=== PATIENT | female | born 2000 | race Caucasian/White ===

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

== ENCOUNTER 2022-01-03 14:05 | Emergency (ER) | payer OTHER, SELFPAY ==
[2022-01-03 14:06] VITALS: BP 124/74; PULSE 83; RESP 16; TEMP 36.6; O2SAT 96; BMI 26.5
--- NOTE | 2022-01-03 14:44 | HMH.EDUROGF ---
ED Disposition Clinical Impression: Abnormal uterine bleeding Disposition: Home, Self-Care Condition on Discharge: Good Instructions: DI for Urinary Tract Infection (UTI), DI for Urinary Tract Infection in Children, DI for Abnormal Uterine Bleeding Additional Instructions: follow up CRUSHER OPERATOR Referrals: Rigoberto Hopper MD [Primary Care Provider] - - Critical Care Critical Care Time: No Attestation: On 01/03/22, the high probability of a clinically significant, sudden or life threatening deterioration of the following system(s) required my full and direct attention, intervention and personal management. The time I documented below is in addition to time spent performing reported procedures but includes the following listed in this critical care notation. Medical Decision Making - Medical Records Medical records reviewed: Yes: I reviewed the patient's medical records. - [place] Inquiry Pt receiving controlled substance: No Vital Signs: 01/03/22 14:06 Temperature 98 F Temperature Source Oral Pulse Rate [Brachial] 83 Respiratory Rate 16 Blood Pressure [Right Arm] 124/74 Blood Pressure Mean [Right Arm] 90 Blood Pressure Position [Right Arm] Sitting 02 Sat by Pulse Oximetry 96 Oxygen Delivery Method Room Air - Lab Data Lab Results 01/03/22 14:10: Urine Color Yellow, Urine Appearance Sl cloudy, Urine pH 6.0, Ur Specific [place] >= 1.030, Urine Protein Negative, Urine Glucose (UA) Negative, Urine Ketones Negative, Urine Blood Negative, Urine Nitrate Negative, Urine Bilirubin Negative, Urine Urobilinogen 0.2, Ur Leukocyte Esterase Negative, Urine RBC Occasional, Urine WBC None, Ur Squamous Epith Cells 10-20, Urine Bacteria 1+ 01/03/22 14:10: Urine HCG, Qual Negative 01/03/22 15:10: WBC 4.9, RBC 4.74, Hgb 14.1, Hct 41.0, MCV 86.5, MCH 29.7, MCHC 34.4, RDW 12.8, Plt Count 344, MPV 7.9, Neut % (Auto) 61.3, Lymph % (Auto) 27.9, [place] % (Auto) 5.5, Eos % (Auto) 4.0, Baso % (Auto) 1.3, Neut # (Auto) 3.0, Lymph # (Auto) 1.4, [place] # (Auto) 0.3, Eos # (Auto) 0.2, Baso # (Auto) 0.1 01/03/22 15:10: Sodium 141, Potassium 4.0, Chloride 107, Carbon Dioxide 25, Anion Gap 13.0, BUN 9, Creatinine 0.70, Estimated Creat Clear 134, Estimated GFR 108, Est GFR ( Amer) 130, Glucose 94, Calcium 8.9, Total Bilirubin 0.9, AST 38 H, ALT 33, Alkaline Phosphatase 46, Total Protein 7.8, Albumin 4.8, Globulin 3.0, Albumin/Globulin Ratio 1.6 Result diagrams: 01/03/22 15:10 01/03/22 15:10 - Reevaluation(s) Time: 16:00 (reeval, no bleeding here, abd soft, ok with plan to f/u CRUSHER OPERATOR) Female Urogenital HPI - General Chief complaint: Urogenital-Female Stated complaint: abd pains, nausea, vaginal bledding Time Seen by Provider: 01/03/22 14:44 Mode of Arrival: Ambulatory Source of Information: Patient Limitations: No Limitations Description of Symptoms (Recalled from ER Triage Doc. by RN): to ed per pvt car with c/o abd cramping vag bleeding and clotting this am. pt states on control the bar for 4 years and has not had a period since insertion. - History of Present Illness HPI Narrative: sudden onset moderate vag bleed this am, assoc with abd cramps, resolved now, birthcontrol sex active Onset (ago): hour(s) Radiation: non-radiating Severity: moderate Quality: cramping Duration: now resolved Relieving factors: none Exacerbating factors: none Vaginal discharge: blood : No - Related Data Home Medications Medication Instructions Recorded Confirmed etonogestrel 68 mg subdermal SUBDERMAL 12/14/19 04/23/21 implant Previous Rx's Medication Instructions Recorded estradiol 2 mg tablet 2 mg PO DAILY #30 tab 12/14/19 Allergies Allergy/AdvReac Type Severity Reaction Status Date / Time No Known Allergies Allergy Verified 04/23/21 16:36 [facility] History - Hepatitis A Screen Drug use history?: No High risk sexual behaviors?: No History of sexually transmitted infection?: No Currently employed?: No
[2022-01-03 15:17] LABS: Microscopic, Urine URINE MICROSCOPIC (MICROSCOPIC)
[2022-01-03 15:20] LABS: Appearance,Urine SL CLOUDY (Clear); Bilirubin,Urine Negative (Negative); Blood, Urine Negative (Negative); Color,Urine YELLOW (Yellow); Glucose,Urine (UA) Negative (Negative); Ketones,Urine Negative (Negative); Leukocyte Esterase,Urine Negative (Negative); Nitrate,Urine Negative (Negative); Protein,Urine Negative (Negative); Specific Gravity, Urine >= 1.030 (1.005-1.030); Urobilinogen,Urine 0.2 EU/dl (0.2)
[2022-01-03 15:21] LABS: Urine Pregnancy, HCG Qual. Negative (Negative)
[2022-01-03 15:29] LABS: Basophils # 0.1 K/mm3 (0-0.2); Basophils % 1.3 % (0.1-2.0); Eosinophils # 0.2 K/mm3 (0.0-0.4); Hemoglobin 14.1 g/dL (12.2-16.2); Lymphocytes # 1.4 K/mm3 (0.7-4.5); Lymphocytes % 27.9 % (10-50); Mean Corpuscular HGB Conc 34.4 g/dL (31.8-35.4); Mean Corpuscular Hemoglobin 29.7 pg (27.0-31.2); Mean Corpuscular Volume 86.5 fl (81-99); Mean Platelet Volume 7.9 fl (7.4-10.4); Monocytes # 0.3 K/mm3 (0.1-1.0); Monocytes % 5.5 % (1.7-9.3); Neutrophils % 61.3 % (37.0-80.0); Platelet Count 344 K/mm3 (142-424); Red Blood Count 4.74 M/mm3 (4.20-5.40); Red Cell Distribution Width 12.8 % (11.5-17.5); White Blood Count 4.9 K/mm3 (4.5-13.0)
[2022-01-03 15:33] LABS: Chloride 107 mmol/L (98-107); Sodium 141 mmol/L (136-145)
[2022-01-03 15:36] LABS: Alanine Aminotransferase 33 U/L (12-78); Albumin Level 4.8 g/dl (3.5-5.0); Albumin/Globulin Ratio 1.6 (1.1-1.8); Alkaline Phosphatase 46 U/L (38-126); Aspartate Amino Transferase 38 U/L (14-36); Bilirubin,Total 0.9 mg/dl (0.2-1.3); Blood Urea Nitrogen 9 mg/dl (7-17); Calcium 8.9 mg/dl (8.4-10.2); Carbon Dioxide 25 mmol/L (22.0-30.0); Creatinine Clearance Estimated 134 mL/min (50-200); Estimated Glomerular Filt Rate 108 ml/min (>60); GFR (African American) 130 ML/MIN (>60); Glucose 94 mg/dl (74-100); Total Protein,Serum 7.8 g/dl (6.3-8.2)
[2022-01-03 15:44] LABS: Bacteria,Urine 1+ /lpf; RBC,Urine Occasional #/hpf (0-3)
[2022-01-03 16:27] VITALS: BP 117/69; PULSE 61; RESP 18; TEMP 36.6; O2SAT 96
== END 2022-01-03 16:28 | disposition home or self-care (01) ==
PROVIDERS: Emergency Provider Emergency Medicine; PCP Family Medicine
DX: N93.8 Other specified abnormal uterine and vaginal bleeding (principal)
CPT/HCPCS: 80053; 81001; 81025; 85025; 99283

== ENCOUNTER 2022-09-11 20:50 | Emergency (ER) | payer BC, SELFPAY ==
[2022-09-11 21:02] VITALS: BMI 24.8
--- NOTE | 2022-09-11 21:03 | XR_ITS ---
PROCEDURE INFORMATION: Exam: XR Left Ankle Exam date and time: 09/11/2022 8:59 PM Age: 22 years old Clinical indication: Patient HX: Left ankle pain S/P dropping bucket of paint on ankle; Additional info: Injury TECHNIQUE: Imaging protocol: Radiologic exam of the Left ankle. Views: 3 or more views. COMPARISON: CR ANKL3 ANKLE-LT-3 VIEWS 12/02/2015 2:25 PM FINDINGS: Bones/joints: Normal. Soft tissues: Mild soft tissue swelling superficial to the medial malleolus. IMPRESSION: 1. No evidence of acute osseous injury. 2. Soft tissue swelling.
[2022-09-11 21:06] VITALS: BP 133/76; PULSE 94; RESP 18; TEMP 36.8; O2SAT 98; BMI 24.8
[2022-09-11 21:23] LABS: Urine Pregnancy, HCG Qual. Negative (Negative)
--- NOTE | 2022-09-11 22:10 | HMH.EDLOEX ---
Discharge Plan Disposition Patient Disposition: Home, Self-Care Prescriptions Prescriptions: No Action No Known Home Medications Referrals Follow up/Referrals: Opal Daley APRN [Primary Care Provider] - See instructions Clinical Impressions Clinical Impression: Contusion of ankle, left, Ankle sprain and strain Instructions Patient Instructions: Sprain Discharge ED Provider: Jean Paul Kaur Lower Extremity Injury HPI General Chief Complaint: Extremity Injury, Lower Stated Complaint: AO12/7@2000 ATHOME INJURED l ANKLE Time Seen by Provider: 09/11/22 22:10 Mode of Arrival: Wheelchair Source of Information: Patient and Medical Record Limitations: No Limitations Description of Symptoms (Recalled from ER Triage Doc. by RN): Patient states that roughly 45 minutes ago she dropped a bucket of pain on her left ankle. History of Present Illness HPI Narrative: acute injury to lt ankle as dropped bucket on ankle MD complaint: ankle injury Onset (ago): hour(s) Injury: Left: ankle Type of Injury: blunt Place: home Severity: moderate Context: direct blow Associated symptoms: able to partially bear weight Other symptoms: none Related Data Home Medications Medication Instructions Recorded Confirmed No Known Home Medications 07/23/22 07/23/22 Allergies Allergy/AdvReac Type Severity Reaction Status Date / Time No Known Allergies Allergy Verified 07/23/22 16:05 [facility] Disclaimer: The information contained in this section may have been updated after the patient was seen, as this information can be updated by other users. Social History (Updated 07/23/22 @ 16:06 by MARYLOU Harris) Smoking Status: Current every day smoker alcohol intake: never substance use type: denies use current occupational status: employed Travel in the last 8 weeks: None household members: family housing: house ROS Obtained: Yes All systems reviewed & no additional complaints except as documented Physical Exam General General appearance: alert Head Head exam: normocephalic Eye Eye exam: Present PERRL and EOMI ENT ENT exam: Present mucous membranes moist Neck Neck exam: Present trachea midline Respiratory Respiratory exam: Absent respiratory distress Cardiovascular Cardiovascular exam: Present regular rate Expanded Lower Extremity Exam Left: Ankle exam: Present tenderness and swelling; Absent full ROM Neurovascular/Tendon exam: Present pulse deficit Neurological Exam Neurological exam: Present alert, oriented X3 and CN II-XII intact Psychiatric Psychiatric exam: Present normal affect Skin Skin exam: Absent rash Medical Decision Making Medical Records Medical records reviewed: Yes I reviewed the patient's medical records. [place] Inquiry Pt receiving controlled substance: No Vital Signs: 09/11/22 21:06 Temperature 98.2 F Temperature Source Oral Pulse Rate [Apical] 94 H Respiratory Rate 18 Blood Pressure [Right Arm] 133/76 Blood Pressure Mean [Right Arm] 95 Blood Pressure Source [Right Arm] Automatic Cuff Blood Pressure Position [Right Arm] Sitting 02 Sat by Pulse Oximetry 98 Oxygen Delivery Method Room Air Lab Data Lab results reviewed: Yes I reviewed the patient's lab results. Lab Results 09/11/22 21:05: Urine HCG, Qual Negative Orders (Tests/Meds): ED MEDICATIONS Discontinued Medications Generic Name Dose Route Start Last Admin Trade Name Freq PRN Reason Stop Dose Admin Acetaminophen 1,000 mg 09/11/22 21:03 09/11/22 21:05 Acetaminophen 500mg Tab PO 09/11/22 21:04 1,000 mg ONCE ONE Administration Ibuprofen 600 mg 09/11/22 21:04 09/11/22 21:05 Ibuprofen 600 Mg Tablet PO 09/11/22 21:05 600 mg ONCE ONE Administration ORDERS Category Date Time Status XR ankle LT min 3V Stat Exams 09/11/22 21:03 Completed Urine , HCG Qual. Stat Lab 09/11/22 21:05 Completed Radiology Data #1:
[2022-09-11 22:21] VITALS: BP 128/76; PULSE 88; RESP 18; TEMP 36.6; O2SAT 99
== END 2022-09-11 22:35 | disposition home or self-care (01) ==
PROVIDERS: Emergency Provider Emergency Medicine; PCP Nurse Practitioner Family
DX: S90.02XA Contusion of left ankle, initial encounter (principal); S93.402A Sprain of unspecified ligament of left ankle, initial encounter
CPT/HCPCS: 73610; 81025; 99283

== ENCOUNTER 2022-10-28 16:03 | Emergency (ER) | payer BC, SELFPAY ==
--- NOTE | 2022-10-28 16:38 | EXP.UTC ---
Discharge Plan Disposition Patient Disposition: Home, Self-Care Condition: Good Prescriptions Prescriptions: New ondansetron 4 mg Tablet,Disintegrating 4 mg PO Q8H PRN (Reason: Nausea) Qty: 12 0RF No Action erythromycin 5 mg/gram (0.5 %) ointment 0.5 inch ophthalmic (eye) QID 7 Days Qty: 3.5 0RF Rx Instructions: apply to right eye as directed Referrals Follow up/Referrals: Provider,Referral, MD [Primary Care Provider] - See instructions Activity Restrictions/Add. Instructions Additional Instructions/Restrictions: Drink plenty of fluids. Take tylenol or ibuprofen for pain or fever. Take the medications as directed. Follow up with your regular doctor. GO TO THE ER FOR ANY WORSENING SYMPTOMS Clinical Impressions Clinical Impression: Acute viral syndrome, Gastroenteritis Stand Alone Forms Stand Alone Forms: Work/School Release Instructions Patient Instructions: DI for Viral Gastroenteritis -- Adult, DI for Viral Syndrome, Ondansetron Discharge ED Provider: Seamus Rubin [facility] [place] General Stated complaint: vomiting and headache Time Seen by Provider: 10/28/22 16:38 History of Present Illness Provider Complaint: She c/o n/v/d for the past 2 days. She denies abdominal pain. Related Data Previous Rx's Medication Instructions Recorded ondansetron 4 mg disintegrating 4 mg PO Q8H PRN Nausea #12 tabs 10/28/22 tablet erythromycin 5 mg/gram (0.5 %) eye 0.5 inch ophthalmic (eye) QID 7 11/28/22 ointment days #3.5 grams Allergies Allergy/AdvReac Type Severity Reaction Status Date / Time No Known Allergies Allergy Verified 10/28/22 16:45 [facility] Disclaimer: The information contained in this section may have been updated after the patient was seen, as this information can be updated by other users. Social History Smoking Status: Current every day smoker alcohol intake: never substance use type: denies use current occupational status: employed Travel in the last 8 weeks: None household members: family housing: house ROS Obtained: Yes All systems reviewed & no additional complaints except as documented Constitutional Constitutional: Denies chills, Denies fever(s) and Reports poor appetite ENT Ears, Nose, Mouth, and Throat: Denies dizziness and Denies sore throat Cardiovascular Cardiovascular: Denies dyspnea Respiratory Respiratory: Denies chest congestion, Denies cough and Denies dyspnea Gastrointestinal Gastrointestingal: Reports as per HPI Genitourinary Female Genitourinary: Denies difficulty voiding, Denies dysuria, Denies hematuria, Denies urinary frequency, Denies urinary incontinence, Denies urinary hesitancy and Denies urinary urgency Musculoskeletal Musculoskeletal: Denies arthralgias Integumentary/Breasts Skin/Breast: Denies rash Neurologic Neurologic: Denies dizziness Physical Exam General General appearance: alert and in no apparent distress Head Head exam: atraumatic and normocephalic Eye Eye exam: Present normal appearance, PERRL and EOMI ENT ENT exam: Present normal exam, normal oropharynx, mucous membranes moist, TM's normal bilaterally and normal external ear exam Neck Neck exam: Present normal inspection, full ROM and trachea midline; Absent tenderness, meningismus or lymphadenopathy Chest Chest inspection: Present normal inspection and symmetric chest wall rise; Absent tenderness, rash or abscess Respiratory Respiratory exam: Present normal lung sounds bilaterally; Absent respiratory distress, wheezes or stridor Cardiovascular Cardiovascular exam: Present regular rate and normal rhythm; Absent irregular rhythm, systolic murmur, diastolic murmur or JVD Abdominal Exam Abdominal exam: Present soft and normal bowel sounds; Absent distention, tenderness, guarding, rebound, rigidity, psoas sign, obturator sign, heel tap sign, Bertrand's sign, Rovsing's sign or tenderness at McBurney's P
[2022-10-28 16:40] VITALS: BP 130/81; PULSE 95; RESP 20; TEMP 36.9; O2SAT 97; BMI 26.6
[2022-10-28 17:55] VITALS: BP 130/81; PULSE 95; RESP 20; TEMP 36.9; O2SAT 97
== END 2022-10-28 17:56 | disposition home or self-care (01) ==
PROVIDERS: Emergency Provider Nurse Practitioner Family
DX: K52.9 Noninfective gastroenteritis and colitis, unspecified (principal); B34.9 Viral infection, unspecified
CPT/HCPCS: 99212; 99213; C9803; G0463; U0003; U0005

== ENCOUNTER 2022-11-28 13:33 | Emergency (ER) | payer BC, SELFPAY ==
[2022-11-28 13:45] VITALS: BP 111/79; PULSE 88; RESP 20; TEMP 37.1; O2SAT 97; BMI 24.8
[2022-11-28 14:20] VITALS: BP 111/79; PULSE 88; RESP 20; TEMP 37.1; O2SAT 97
--- NOTE | 2022-11-28 14:21 | EXP.UTC ---
Discharge Plan Disposition Patient Disposition: Home, Self-Care Condition: Good Prescriptions Prescriptions: New polymyxin B sulf-trimethoprim [Polytrim] 10,000 unit- 1 mg/mL drops 2 drp ophthalmic (eye) Q6H 7 Days Qty: 10 0RF Rx Instructions: right eye while awake; do not exceed 6 doses in 24 hours No Action ondansetron 4 mg Tablet,Disintegrating 4 mg PO Q8H PRN (Reason: Nausea) Qty: 12 0RF Referrals Follow up/Referrals: Provider,Referral, MD [Primary Care Provider] - See instructions Activity Restrictions/Add. Instructions Additional Instructions/Restrictions: Use eye drops as prescribed Follow up with eye Doctor if no improvement or any worsening of symptoms Return if needed Follow up with your Family Doctor if needed Clinical Impressions Clinical Impression: Conjunctivitis Stand Alone Forms Stand Alone Forms: Work/School Release Instructions Patient Instructions: Conjunctivitis, DI for Conjunctivitis Discharge ED Provider: Margaux Mahoney [facility] [place] HPI General Stated complaint: possible pink eye Mode of Arrival: Ambulatory Source of Information: Patient Limitations: No Limitations Time Seen by Provider: 11/28/22 14:21 Description of Symptoms (Recalled from Triage Doc. 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 and she thinks she has it now too so today when it was getting worse she came in to get it checked Related Data Previous Rx's Medication Instructions Recorded ondansetron 4 mg disintegrating 4 mg PO Q8H PRN Nausea #12 tabs 10/28/22 tablet polymyxin B sulfate 10,000 2 drp ophthalmic (eye) Q6H 7 days 11/28/22 unit-trimethoprim 1 mg/mL eye #10 mL drops (Polytrim) Allergies Allergy/AdvReac Type Severity Reaction Status Date / Time No Known Allergies Allergy Verified 10/28/22 16:45 Worker's Comp Is this a Worker's Comp case?: No [facility] Disclaimer: The information contained in this section may have been updated after the patient was seen, as this information can be updated by other users. Social History (Updated 07/23/22 @ 16:06 by MARYLOU Harris) Smoking Status: Current every day smoker alcohol intake: never substance use type: denies use current occupational status: employed Travel in the last 8 weeks: None household members: family housing: house ROS Obtained: Yes All systems reviewed & no additional complaints except as documented and Yes Systems reviewed as appropriate & no additional complaints except as documented Constitutional Constitutional: Reports system reviewed and no additional complaints, except as documented and Reports as per HPI Eyes Eyes: Reports system reviewed and no additional complaints, except as documented, Reports as per HPI, Reports eye discharge and Reports irritation ENT Ears, Nose, Mouth, and Throat: Reports system reviewed and no additional complaints, except as documented and Reports as per HPI Cardiovascular Cardiovascular: Reports system reviewed and no additional complaints, except as documented and Reports as per HPI Respiratory Respiratory: Reports system reviewed and no additional complaints, except as documented and Reports as per HPI Gastrointestinal Gastrointestingal: Reports system reviewed and no additional complaints, except as documented and as per HPI Physical Exam General General appearance: alert and in no apparent distress Eye Eye exam: Present conjunctival redness (right eye) and discharge (right eye with matting particles noted in lashes) Respiratory Respiratory exam: Present normal lung sounds bilaterally; Absent respiratory dis
== END 2022-11-28 14:23 | disposition home or self-care (01) ==
PROVIDERS: Emergency Provider Nurse Practitioner
DX: H10.9 Unspecified conjunctivitis (principal)
CPT/HCPCS: 99212; 99213; G0463

== ENCOUNTER 2023-05-08 05:37 | Emergency (ER) | payer BC, SELFPAY ==
[2023-05-08] VITALS (14 sets, daily range): BP systolic 100–129; BP diastolic 53–80; PULSE 70–121; RESP 18; TEMP 36.6–38.4; O2SAT 97–100; BMI 25.7
--- NOTE | 2023-05-08 05:52 | ECG_ITS ---
APPROVED REPORT Exam: Resting ECG HR:116 bpm ECG Measurements Heart Rate 116 AXES PA 124 P 47 QRSd 82 QRS 95 QT 317 T 53 QTc 386 Conclusion SINUS TACHYCARDIA BORDERLINE RIGHT AXIS DEVIATION [QRS AXIS > 90] ABNORMAL RHYTHM ECG UNCONFIRMED REPORT Electronically signed by : Rigoberto Zamora MD 05/09/2023 17:46:03
--- NOTE | 2023-05-08 05:53 | HMH.EDGENADL ---
Discharge Plan Disposition Patient Disposition: Home, Self-Care Prescriptions Prescriptions: No Action ondansetron 4 mg Tablet,Disintegrating 4 mg PO Q8H PRN (Reason: Nausea) Qty: 12 0RF erythromycin 5 mg/gram (0.5 %) ointment 0.5 inch ophthalmic (eye) QID 7 Days Qty: 3.5 0RF Rx Instructions: apply to right eye as directed Referrals Follow up/Referrals: Rigoberto Hopper MD [Primary Care Provider] - See instructions Activity Restrictions/Add. Instructions Additional Instructions/Restrictions: Call your family doctor to establish care for this visit to the emergency department and schedule follow-up within 48 hours to ensure improvement. If you have any worsening of your condition or any other concerning signs or symptoms, return to the emergency department or your primary care doctor for further evaluation. Take Tylenol 1000 mg every 6 hours (4 times daily) and ibuprofen 400 mg every 6 hours (4 times daily) as needed with food and water to prevent GI upset and kidney damage. Talk to your WAREHOUSE PACKER regarding abnormal periods in the setting of negative test. Clinical Impressions Clinical Impression: Fever, Pharyngitis Discharge ED Provider: Too Lara General Adult HPI <Richard Dolan MD - Last Filed: 05/08/23 06:45> General Chief complaint: Headache Stated complaint: [id number],nausea,HAlate on period,sore throat Time Seen by Provider: 05/08/23 05:41 History of Present Illness HPI narrative: Patient is a 23-year-old female with no pertinent past medical history who presents emergency department for evaluation of multiple symptoms including headache, sore throat, fever. Onset was acute, occurring since 7 PM yesterday evening. 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 Headache is bitemporal, no visual changes, no vomiting, no chest pain, no shortness of breath. Patient has taken 6 negative test in the last 2 weeks given that she normally has her period approximately every 24 days. She has had intermittent cramping as if she feels like she is about to start her period however has not. Denies vaginal discharge. Denies significant dysuria. No other acute complaints at this time. Related Data Previous Rx's Medication Instructions Recorded ondansetron 4 mg disintegrating 4 mg PO Q8H PRN Nausea #12 tabs 10/28/22 tablet erythromycin 5 mg/gram (0.5 %) eye 0.5 inch ophthalmic (eye) QID 7 11/28/22 ointment days #3.5 grams Allergies Allergy/AdvReac Type Severity Reaction Status Date / Time No Known Allergies Allergy Verified 10/28/22 16:45 PFSH <Richard Dolan MD - Last Filed: 05/08/23 06:45> PFSH Disclaimer: The information contained in this section may have been updated after the patient was seen, as this information can be updated by other users. Social History Smoking Status: Current some day smoker alcohol intake: never substance use type: denies use current occupational status: employed Travel in the last 8 weeks: None household members: family housing: house <Richard Dolan MD - Last Filed: 05/08/23 06:45> ROS Obtained: Yes Systems reviewed as appropriate & no additional complaints except as documented Physical Exam <Richard Dolan MD - Last Filed: 05/08/23 06:45> General General appearance: alert and in no apparent distress Head Head exam: atraumatic and normocephalic Eye Eye exam: Present PERRL and EOMI ENT ENT exam: Present mucous membranes moist and other (Erythematous posterior oropharynx without tonsillar swelling or exudate.) Neck Neck exam: Present normal inspection Chest Chest inspection: Present normal inspection and symmetric chest wall rise Respiratory Respiratory exam: Present normal lung sounds bilaterally; Absent respiratory distress Cardiovascular Cardiovascular exam: Present normal rhythm and tachycardia Abdominal Ex
[2023-05-08 05:58] LABS: Coronavirus 19, PCR Not Detected (NotDetected); Influenza A, PCR Not Detected (NotDetected); Influenza B, PCR Not Detected (NotDetected); Microscopic, Urine URINE MICROSCOPIC (MICROSCOPIC)
[2023-05-08 06:05] LABS: Appearance,Urine CLEAR (Clear); Bilirubin,Urine Negative (Negative); Blood, Urine Negative (Negative); Color,Urine YELLOW (Yellow); Glucose,Urine (UA) Negative (Negative); Ketones,Urine Negative (Negative); Leukocyte Esterase,Urine Negative (Negative); Nitrate,Urine Negative (Negative); Protein,Urine Negative (Negative)
[2023-05-08 06:34] LABS: Bacteria,Urine Trace /lpf; Squamous Epithelial Cell,Urine Occasional #/hpf (0-5)
[2023-05-08 06:49] LABS: Basophils % 0.2 % (0.1-2.0); Eosinophils # 0.1 K/mm3 (0.0-0.4); Eosinophils % 0.5 % (0.1-12.0); Hematocrit 42.6 % (37.0-47.0); Hemoglobin 14.1 g/dL (12.2-16.2); Lymphocytes # 1.3 K/mm3 (0.7-4.5); Lymphocytes % 7.9 % (10-50); Mean Corpuscular HGB Conc 33.1 g/dL (31.8-35.4); Mean Corpuscular Hemoglobin 27.8 pg (27.0-31.2); Mean Corpuscular Volume 83.9 fl (81-99); Mean Platelet Volume 7.8 fl (7.4-10.4); Monocytes # 0.6 K/mm3 (0.1-1.0); Monocytes % 3.9 % (1.7-9.3); Neutrophils # 14.1 K/mm3 (1.8-7.8); Neutrophils % 87.4 % (37.0-80.0); Platelet Count 360 K/mm3 (142-424); Red Blood Count 5.08 M/mm3 (4.20-5.40); Red Cell Distribution Width 12.2 % (11.5-17.5); White Blood Count 16.1 K/mm3 (4.8-10.8)
[2023-05-08 06:54] LABS: MANUAL DIFFERENTIAL MANUAL DIFFERENTIAL (MANUAL DIFF)
[2023-05-08 06:58] LABS: Chloride 99 mmol/L (98-107); Potassium 3.5 mmoL/L (3.5-5.1); Sodium 138 mmol/L (136-145)
[2023-05-08 07:00] LABS: HCG Qualitative, Serum Negative (Negative)
[2023-05-08 07:01] LABS: Alanine Aminotransferase 30 U/L (12-78); Albumin Level 5.1 g/dl (3.5-5.0); Albumin/Globulin Ratio 1.5 (1.1-1.8); Alkaline Phosphatase 52 U/L (38-126); Anion Gap 14.5 mEq/L (5-15); Aspartate Amino Transferase 35 U/L (14-36); Bilirubin,Total 0.9 mg/dl (0.2-1.3); Blood Urea Nitrogen 7 mg/dl (7-17); Calcium 9.8 mg/dl (8.4-10.2); Carbon Dioxide 28 mmol/L (22.0-30.0); Creatinine Clearance Estimated 144 mL/min (50-200); Estimated Glomerular Filt Rate 126 ml/min (>60); GFR (African American) 153 ML/MIN (>60); Globulin 3.4 g/dL (1.3-3.2); Glucose 90 mg/dl (74-100); Total Protein,Serum 8.5 g/dl (6.3-8.2)
[2023-05-08 07:18] LABS: Lymphocytes % 7 % (10-50); Monocytes % 4 % (2-9); Neutrophils % 89 % (42-76); Platelet Estimate Normal; RBC Morphology Normal; Total Cells Counted 100
[2023-05-08 07:36] LABS: Thyroid Stimulating Hormone 2.38 uIU/mL (0.465-4.68)
[2023-05-08 07:52] LABS: Adenovirus,PCR Not Detected (NotDetected); Bordetella Pertussis Not Detected (NotDetected); Chlamydophila Pneumoniae, PCR Not Detected (NotDetected); Coronavirus 19, PCR Not Detected (NotDetected); Coronavirus 229E Not Detected (NotDetected); Coronavirus NL63 Not Detected (NotDetected); Coronavirus OC43 Not Detected (NotDetected); Coronovirus HKU1,PCR Not Detected (NotDetected); Human Metapneumovirus Not Detected (NotDetected); Influenza A, PCR Not Detected (NotDetected); Influenza AH1, 2009 Not Detected (NotDetected); Influenza AH1, PCR Not Detected (NotDetected); Influenza AH3,PCR Not Detected (NotDetected); Influenza B, PCR Not Detected (NotDetected); Mycoplasma Pneumoniae, PCR Not Detected (NotDetected); Parainfluenza 1, PCR Not Detected (NotDetected); Parainfluenza 2, PCR Not Detected (NotDetected); Parainfluenza 3, PCR Not Detected (NotDetected); Parainfluenza 4, PCR Not Detected (NotDetected); Respiratory Syncytial Virus Not Detected (NotDetected); Rhinovirus/Enterovirus Not Detected (NotDetected)
--- NOTE | 2023-05-08 09:10 | PC.NURSE ---
contacted lab to check on status of upper resp swab results, states will be appprox 1 hour for results, swab just going on analyzer there were 2 specimens ahead of it. Updated ER MD Lara
--- NOTE | 2023-05-08 10:22 | PC.NURSE ---
rounded on pt, pt sleeping
== END 2023-05-08 11:12 | disposition home or self-care (01) ==
PROVIDERS: Emergency Medicine; Emergency Provider Emergency Medicine; PCP Family Medicine
DX: R51.9 Headache, unspecified (principal); R50.9 Fever, unspecified; J02.9 Acute pharyngitis, unspecified; F17.200 Nicotine dependence, unspecified, uncomplicated
CPT/HCPCS: 80053; 81001; 84443; 84703; 85007; 85025; 87581; 87632; 87636; 87798; 93005; 96361; 96374; 96375; 96376; 99285; J0131; J2405

== ENCOUNTER 2023-05-09 00:48 | Emergency (ER) | payer BC, SELFPAY ==
[2023-05-09 00:49] VITALS: BP 137/97; PULSE 103; RESP 16; TEMP 37.2; O2SAT 98; BMI 24.8
--- NOTE | 2023-05-09 01:01 | HMH.EDGENADL ---
Discharge Plan Disposition Patient Disposition: Home, Self-Care Condition: Fair Chief Complaint: Upper Respiratory Infection Prescriptions Prescriptions: No Action ondansetron 4 mg Tablet,Disintegrating 4 mg PO Q8H PRN (Reason: Nausea) Qty: 12 0RF erythromycin 5 mg/gram (0.5 %) ointment 0.5 inch ophthalmic (eye) QID 7 Days Qty: 3.5 0RF Rx Instructions: apply to right eye as directed Referrals Follow up/Referrals: Provider,Referral, MD [Primary Care Provider] - See instructions Activity Restrictions/Add. Instructions Additional Instructions/Restrictions: At this time it was felt you are safe to be discharged home. Please take Tylenol and ibuprofen at the same time every 6 hours for the next few days. You were given a penicillin shot today for your strep which should help resolve your infection. If you are unable to swallow, have difficulty ranging her neck, have difficulty breathing please do not hesitate to return for continued evaluation. Clinical Impressions Clinical Impression: Acute streptococcal pharyngitis Discharge ED Provider: Richard Dolan General Adult HPI General Chief complaint: Upper Respiratory Infection Stated complaint: sore throat Time Seen by Provider: 05/09/23 00:52 History of Present Illness HPI narrative: Patient is a 23-year-old female with no pertinent past medical history presents emergency department for evaluation of multiple complaints. Patient was seen by me yesterday and presented for evaluation of fever, sore throat, myalgias, headache, intermittent abdominal cramping's, late period. Patient was ultimately discharged with likely suspected viral syndrome. Patient underwent hematologic testing, viral respiratory panel which was ultimately nonactionable. Patient was subsequently discharged. Since then patient has had worsening sore throat, fever Tmax 102 at home responsive to ice packs, decreased p.o. intake secondary to pain. She presents here for continued evaluation. Related Data Previous Rx's Medication Instructions Recorded ondansetron 4 mg disintegrating 4 mg PO Q8H PRN Nausea #12 tabs 10/28/22 tablet erythromycin 5 mg/gram (0.5 %) eye 0.5 inch ophthalmic (eye) QID 7 11/28/22 ointment days #3.5 grams Allergies Allergy/AdvReac Type Severity Reaction Status Date / Time No Known Allergies Allergy Verified 10/28/22 16:45 [facility] Disclaimer: The information contained in this section may have been updated after the patient was seen, as this information can be updated by other users. Social History Smoking Status: Never smoker alcohol intake: never substance use type: denies use current occupational status: employed Travel in the last 8 weeks: None household members: family housing: house ROS Obtained: Yes Systems reviewed as appropriate & no additional complaints except as documented Physical Exam General General appearance: alert and in no apparent distress Head Head exam: atraumatic and normocephalic Eye Eye exam: Present PERRL and EOMI ENT ENT exam: Present mucous membranes moist and other (Blisters on the posterior oropharynx, tonsillar exudate, uvula midline) Neck Neck exam: Present normal inspection Chest Chest inspection: Present normal inspection and symmetric chest wall rise Respiratory Respiratory exam: Present normal lung sounds bilaterally; Absent respiratory distress Cardiovascular Cardiovascular exam: Present regular rate and normal rhythm Abdominal Exam Abdominal exam: Present soft; Absent tenderness Extremities Exam Extremities exam: Present normal inspection Neurological Exam Neurological exam: Present alert and oriented X3 Psychiatric Psychiatric exam: Present normal affect Skin Skin exam: Present warm and dry Medical Decision Making Martinez Inquiry Pt receiving controlled substance: No Vital Signs: 05/09/23 00:49 Temperature 98.9 F
[2023-05-09 01:19] LABS: Strep Scrn Group A (Rapid) Positive (Negative)
[2023-05-09 01:59] VITALS: BP 143/62; PULSE 82; RESP 18; TEMP 36.8; O2SAT 99
== END 2023-05-09 02:15 | disposition home or self-care (01) ==
PROVIDERS: Emergency Provider Emergency Medicine
DX: J02.0 Streptococcal pharyngitis (principal)
CPT/HCPCS: 87430; 99283; J0561

== ENCOUNTER 2025-02-07 19:28 | Emergency (ER) | payer SELFPAY ==
[2025-02-07 19:40] VITALS: BP 116/71; PULSE 84; RESP 16; TEMP 36.8; O2SAT 99; BMI 26.5
--- NOTE | 2025-02-07 20:02 | XR_ITS ---
PROCEDURE INFORMATION: Exam: XR Left Knee Exam date and time: 02/07/2025 8:26 PM Age: 25 years old Clinical indication: Injury or trauma; Other: With sunrise for patellar glide pain after fall; Blunt trauma; Knee; Left TECHNIQUE: Imaging protocol: Radiologic exam of the left knee. Views: 4 or more views. COMPARISON: CR XR ANKLE LT MIN 3V 09/11/2022 8:59 PM FINDINGS: Bones/joints: No acute fracture or malalignment. No significant joint effusion. Soft tissues: Unremarkable. IMPRESSION: No acute osseous findings.
--- NOTE | 2025-02-07 20:28 | ED_ITS ---
Discharge Plan Disposition Patient Disposition: Home, Self-Care Chief Complaint: PAIN Prescriptions Prescriptions: No Action ondansetron 4 mg Tablet,Disintegrating 4 mg PO Q8H PRN (Reason: Nausea) Qty: 12 0RF erythromycin 5 mg/gram (0.5 %) ointment 0.5 inch ophthalmic (eye) QID 7 Days Qty: 3.5 0RF Rx Instructions: apply to right eye as directed Referrals Follow up/Referrals: Provider,Referral, MD [Primary Care Provider] - See instructions Activity Restrictions/Add. Instructions Additional Instructions/Restrictions: Take Tylenol 1000 mg every 6 hours (4 times daily) and ibuprofen 400 mg every 6 hours (4 times daily) as needed with food and water to prevent GI upset and kidney damage. Call your family doctor to establish care for this visit to the emergency department and schedule follow-up within 48 hours to ensure improvement. If you have any worsening of your condition or any other concerning signs or symptoms, return to the emergency department or your primary care doctor for further evaluation. Clinical Impressions Clinical Impression: Injury of left knee Print Language Print Language: Sinhala Discharge ED Provider: Too Lara General Adult HPI General Chief complaint: PAIN Stated complaint: AO 02/07/25 1900 fell left leg injury Time Seen by Provider: 02/07/25 19:31 Mode of Arrival: Ambulatory Source of Information: Patient Description of Symptoms (Recalled from ER Triage Doc. by RN): Pt states she fell down 5-6 steps now having left sullivan pain. Able to bear weight. History of Present Illness HPI narrative: Please note that above description of symptoms, in this electronic medical r ecord under categorization of recalled from ER triage doctor by RN are reflective of an initial nursing assessment, however, is not reflective of my full history and physical exam that was personally taken and clarified. Consequentially, this preceding description of symptoms, which may include the patient's categorized chief complaint in the EMR, do not reflect my personal clinical impression, and the ultimate description of history of present illness and patient stated complaints should be deferred to this section of the note. Unless stated otherwise or congruent with this section of the note, additional signs, symptoms, or incongruence should be interpreted as inaccurate with my clinical impression. Related Data Previous Rx's ?Medication ?Instructions ?Recorded ondansetron 4 mg disintegrating 4 mg PO Q8H PRN Nausea #12 tabs 10/28/22 tablet erythromycin 5 mg/gram (0.5 %) eye 0.5 inch ophthalmic (eye) QID 7 11/28/22 ointment days #3.5 grams Allergies Allergy/AdvReac Type Severity Reaction Status Date / Time No Known Allergies Allergy Verified 10/28/22 16:45 [facility] Disclaimer: The information contained in this section may have been updated after the patient was seen, as this information can be updated by other users. Social History Smoking Status: Current every day smoker alcohol intake: never substance use type: denies use current occupational status: employed Travel in the last 8 weeks?: None household members: family housing: house Have you lived/traveled outside [place] in past 30 days?: No Contact w/someone who lives/traveled outside [place] past 30 days?: No Exposure to someone with infectious disease in past 14 days?: No Do you have a fever (greater than 100.4 F or 38 C)?: No Have you tested positive for COVID-19?: No Exposed to someone with COVID-19 in past 14 days?: No Do you have a sore throat?: No Do you have a cough?: No Do you have any weakness?: No Do you have any diarrhea?: No Are you experiencing any unusual bleeding?: No Do you have any muscle aches/pain?: No Do you have any abdominal pain?: No Are you experiencing loss of taste or smell?: No Other Medical History Have you received the Flu Vaccine for this season: No Have you received the Pneumonia Vaccine: No ROS Obtained: Yes All systems reviewed & no additional complaints except as documented Physical Exam General General appearance: alert Head Head exam: atraumatic and normocephalic Eye Eye exam: Present normal appearance, PERRL and EOMI Neck Neck exam: Present normal inspection, full ROM and trachea midline Respiratory Respiratory exam: Absent respiratory distress, wheezes, stridor, accessory muscle use or prolonged expiratory phase Cardiovascular Cardiovascular exam: Present other (Pulses equal symmetric in upper and lower extremities) Abdominal Exam Abdominal exam: Present soft; Absent distention, tenderness or pulsatile mass Extremities Exam Extremities exam: Absent edema Neurological Exam Neurological exam: Present alert, oriented X3 and CN II-XII intact; Absent motor sensory deficit Skin Skin exam: Present warm and dry; Absent diaphoresis or erythema Medical Decision Making Medical Records Medical records reviewed: Yes I reviewed the patient's medical records. Screening: Per USPSTF and CDC recommendations, given the prevalence of disease in our region, it is our hospital?s policy to screen for HIV and viral Hepatitis for all patients aged 18 and over and those with ongoing risk factors. Martinez Inquiry Pt receiving controlled substance: No Martinez was queried for this patient: No Vital Signs: 02/07/25 19:40 Temperature 98.3 F Temperature Source Oral Pulse Rate [Right Brachial] 84 Respiratory Rate 16 Blood Pressure [Right Arm] 116/71 Blood Pressure Mean [Right Arm] 86 Blood Pressure Source [Right Arm] Automatic Cuff Blood Pressure Position [Right Arm] Sitting 02 Sat by Pulse Oximetry 99 Oxygen Delivery Method Room Air Orders (Tests/Meds): ORDERS Category Date Time Status Knee XR left 4 views [XR knee LT 4V] Stat Exams 02/07/25 20:02 Completed HIV Combo Routine Lab 02/07/25 19:49 Ordered Hepatitis C Ab Qual. W/ RFX Routine Lab 02/07/25 19:49 Ordered Medical Decision Narrative: 25-year-old female presenting with left knee injury. She states that she fell down a couple of steps just prior to arrival this afternoon. Able to bear weight, but having pain when extending the knee. Came in for further evaluation. On physical exam, patient very clinically well. Neurovascular intact lower extremity, but she does have tenderness palpation of tibial tuberos ity, insertion of quadriceps tendon. She also has tenderness with patellar glide, but structurally intact otherwise. Differential includes intra-articular hematoma, patellar fracture, tibial plateau fracture, sprain, strain, among others. X-rays were obtained, and on independent interpretation, no acute bony abnormality. On reevaluation, resting at baseline. Because patient at baseline without signs or symptoms of clinical decompensation, deemed appropriate for discharge. Results were relayed to patient who voiced understanding and were agreeable to outpatient management and follow up. I discussed my clinical impression with patient and answered all questions. At this time, the evidence for any other entities in the differential is insufficient to warrant any further testing or ED observation. This was explained as well. Advisory was given that persistent or worsening symptoms require further evaluation. I confirmed the understanding of this discussion. Audio Installer disclaimer Much of this encounter note is an electronic fractionation supervisor spoken language to printed text. Electronic fractionation supervisor of the spoken language may permit errors. Although I have reviewed the note, some errors may still exist. Critical Care Critical Care Time Critical Care Time: No
[2025-02-07 21:35] VITALS: BP 140/70; PULSE 80; RESP 20; TEMP 36.7; O2SAT 97
== END 2025-02-07 21:35 | disposition home or self-care (01) ==
PROVIDERS: Emergency Provider Emergency Medicine
DX: S89.92XA Unspecified injury of left lower leg, initial encounter (principal); W10.8XXA Fall (on) (from) other stairs and steps, initial encounter
CPT/HCPCS: 73564; 99283